=== PATIENT | female | born 1950 | race Caucasian/White ===

== ENCOUNTER 2018-12-27 17:08 | Inpatient (IN) | payer MEDICARE, OTHER ==
[~2018-12-27] VITALS: Ht 157.5 cm; Wt 62.3 kg
[~2018-12-27 17:08] MED LIST: ACET-66 PO; VITA1CAP10 PO
[2018-12-27] MEDS ORDERED: [UNRECOGNIZED DRUG - OTHER] PO (17:17)
[2018-12-27] MEDS ORDERED: B CO1TAB7 PO (17:56)
[2018-12-27] MEDS ORDERED: ASPIRIN 81 MG CHEWABLE TABLET PO ONE (18:00)
[2018-12-27 18:16] LABS: BASOPHILS % (AUTO) 0.6 % (0.0-2.0); EOSINOPHILS % (AUTO) 2.1 % (1.0-6.0); HEMATOCRIT 43.1 % (36-46); HEMOGLOBIN 14.3 g/dL (12.0-16.0); LYMPHOCYTES # (AUTO) 2.3 K/uL (1.0-4.8); LYMPHOCYTES % (AUTO) 33.9 % (22.0-44.0); MEAN CORPUSCULAR HEMOGLOBIN 28.5 pg (26.0-34.0); MEAN CORPUSCULAR HGB CONC 33.2 G/dL (31.0-37.0); MEAN CORPUSCULAR VOLUME 86 fL (80-100); MONOCYTES # (AUTO) 0.6 K/uL (0.1-1.0); MONOCYTES % (AUTO) 9.1 % (2.0-9.0); NEUTROPHILS # (AUTO) 3.7 K/uL (1.8-7.7); NEUTROPHILS % (AUTO) 54.3 % (40.0-70.0); PLATELET COUNT (AUTO) 258 K/uL (150-450); RED BLOOD CELL COUNT(AUTO) 5.02 MIL/uL (4.00-5.20); RED CELL DISTRIBUTION WIDTH 15.5 % (11.5-14.5)
[2018-12-27 18:24] LABS: ANION GAP 11 mmol/L (8-16); CALCIUM, TOTAL 9.1 mg/dL (8.8-10.5); CARBON DIOXIDE 26 mmol/L (22-29); CHLORIDE 103 mmol/L (98-107); CREATININE 0.91 mg/dL (0.60-1.30); GLOMERULAR FILTR. RATE CALC > 60 mL/min (>60); GLUCOSE,RANDOM 93 mg/dL (70-110); POTASSIUM 3.9 mmol/L (3.5-5.1); SODIUM SERUM 140 mmol/L (136-145); UREA NITROGEN, BLOOD 16 mg/dL (7-18)
[2018-12-27] MEDS ORDERED: ONDANSETRON HCL 4 MG/2 ML VIAL IVP PRN (18:45)
[2018-12-27] MEDS ORDERED: ACETAMINOPHEN 325 MG TABLET PO PRN (18:45)
[2018-12-27 21:30] VITALS: BP 153/50
[2018-12-27] MEDS ORDERED: OMEP20 PO (22:12)
[2018-12-28] VITALS (7 sets, daily range): BP systolic 96–114; BP diastolic 47–62
[2018-12-28] MEDS ORDERED: MORPHINE SULFATE 2 MG/ML SYRINGE IVP PRN (01:45)
[2018-12-28] MEDS ORDERED: NITROGLYCERIN 2% (1 GM=INCH) PACKET TP PRN (01:45)
[2018-12-28] MEDS: OMEPRAZOLE 20 MG CAPSULE PO SCH (08:08)
[2018-12-28] MEDS: ASPIRIN 81 MG CHEWABLE TABLET PO SCH (08:08)
[2018-12-28] MEDS: DOCUSATE SODIUM 100 MG CAPSULE PO SCH (08:08)
[2018-12-28] MEDS: ACETAMINOPHEN 325 MG TABLET PO PRN (15:55)
[2018-12-29 04:57] VITALS: BP 101/55
[2018-12-29 06:31] LABS: BASOPHILS % (AUTO) 0.4 % (0.0-2.0); EOSINOPHILS % (AUTO) 4.4 % (1.0-6.0); HEMATOCRIT 40.3 % (36-46); HEMOGLOBIN 13.5 g/dL (12.0-16.0); LYMPHOCYTES # (AUTO) 2.1 K/uL (1.0-4.8); MEAN CORPUSCULAR HEMOGLOBIN 28.7 pg (26.0-34.0); MEAN CORPUSCULAR HGB CONC 33.5 G/dL (31.0-37.0); MEAN CORPUSCULAR VOLUME 86 fL (80-100); MONOCYTES # (AUTO) 0.6 K/uL (0.1-1.0); MONOCYTES % (AUTO) 11.2 % (2.0-9.0); NEUTROPHILS # (AUTO) 2.6 K/uL (1.8-7.7); PLATELET COUNT (AUTO) 257 K/uL (150-450); RED BLOOD CELL COUNT(AUTO) 4.69 MIL/uL (4.00-5.20); RED CELL DISTRIBUTION WIDTH 15.5 % (11.5-14.5)
[2018-12-29 06:45] LABS: ANION GAP 11 mmol/L (8-16); CALCIUM, TOTAL 9.1 mg/dL (8.8-10.5); CARBON DIOXIDE 25 mmol/L (22-29); CHLORIDE 105 mmol/L (98-107); CHOL/HDL RATIO 3.2 (3.9-5.7); CHOLESTEROL 166 mg/dL (131-200); CREATININE 0.81 mg/dL (0.60-1.30); GLOMERULAR FILTR. RATE CALC > 60 mL/min (>60); GLUCOSE,RANDOM 88 mg/dL (70-110); HDL CHOLESTEROL 52 mg/dL (40-60); LDL CHOL (CALC.) 101 mg/dL (0-130); POTASSIUM 3.9 mmol/L (3.5-5.1); SODIUM SERUM 141 mmol/L (136-145); TRIGLYCERIDES 66 mg/dL (15-150); UREA NITROGEN, BLOOD 12 mg/dL (7-18)
[2018-12-29 08:15] VITALS: BP 103/42
[2018-12-29] MEDS: ACETAMINOPHEN 325 MG TABLET PO PRN ×2 (08:34→14:53)
[2018-12-29] MEDS: DOCUSATE SODIUM 100 MG CAPSULE PO SCH (08:34)
[2018-12-29] MEDS: OMEPRAZOLE 20 MG CAPSULE PO SCH (08:35)
[2018-12-29] MEDS: ASPIRIN 81 MG CHEWABLE TABLET PO SCH (08:35)
[2018-12-29] MEDS ORDERED: ATROPINE SULFATE 0.1 MG/ML 10 ML SYRINGE IVP ONE ×3 (10:31→10:45)
[2018-12-29] MEDS ORDERED: SODIUM CHLORIDE 0.9% 0 ML IV ONE (10:33)
[2018-12-29] MEDS ORDERED: SODIUM CHLORIDE 0.9% 1,800 ML IV ONE (10:45)
[2018-12-29 11:20] VITALS: BP 102/43
[2018-12-29 12:00] VITALS: BP 109/59
[2018-12-29 16:00] VITALS: BP 140/74
[2018-12-29] MEDS ORDERED: DOPamine HCL 400 MG/D5%-WATER 250 ML IV PRN (16:30)
[2018-12-29] MEDS ORDERED: INFLUENZA VIRUS VACCINE QVS 2019-20 (3YR+)/PF 60 MCG/0.5 ML SYRINGE IM ONE (19:45)
[2018-12-29 20:00] VITALS: BP 110/48
[2018-12-29] MEDS ORDERED: PNEUMOCOCCAL VACCINE POLYVALENT 0.5 ML VIAL [PPSV23] IM ONE (22:45)
[2018-12-30] VITALS: BP 121/51
[2018-12-30 04:00] VITALS: BP 103/48
[2018-12-30 05:11] LABS: ANION GAP 2 mmol/L (8-16); CALCIUM, TOTAL 8.5 mg/dL (8.8-10.5); CARBON DIOXIDE 26 mmol/L (22-29); CHLORIDE 111 mmol/L (98-107); CREATININE 0.83 mg/dL (0.60-1.30); GLOMERULAR FILTR. RATE CALC > 60 mL/min (>60); GLUCOSE,RANDOM 85 mg/dL (70-110); POTASSIUM 4.2 mmol/L (3.5-5.1); SODIUM SERUM 139 mmol/L (136-145); UREA NITROGEN, BLOOD 9 mg/dL (7-18)
[2018-12-30 08:00] VITALS: BP 129/59
[2018-12-30 08:39] LABS: THYROID STIMULATING HORMONE 5.46 uIU/mL (0.36-3.74)
[2018-12-30] MEDS: OMEPRAZOLE 20 MG CAPSULE PO SCH (08:52)
[2018-12-30] MEDS: ASPIRIN 81 MG CHEWABLE TABLET PO SCH (08:52)
[2018-12-30] MEDS: DOCUSATE SODIUM 100 MG CAPSULE PO SCH (08:53)
[2018-12-30 12:00] VITALS: BP 99/36
== END 2018-12-30 13:45 | disposition home or self-care (01) | DRG 310 ==
LOC: EMS 17:09 → 5S 20:43 → ICU 12-29 11:45
PROVIDERS: ADMIT Internal Medicine; ATTEND Internal Medicine
DX: R00.1 Bradycardia, unspecified (principal); I10 Essential (primary) hypertension; I95.9 Hypotension, unspecified; T50.995A Adverse effect of other drugs, medicaments and biological substances, initial encounter; Z90.49 Acquired absence of other specified parts of digestive tract; Z79.899 Other long term (current) drug therapy; Y92.89 Other specified places as the place of occurrence of the external cause
CPT/HCPCS: 84443; 87081; 93005; 93306; G0378; J0461; J1265; J7030